=== PATIENT | male | born 1995 | race Caucasian/White ===

== ENCOUNTER 2017-07-03 00:01 | Emergency (ER) | payer BC, MEDICAID ==
[~2017-07-03] VITALS: Ht 175.3 cm; Wt 71.8 kg
[2017-07-03 00:04] VITALS: BP 113/71
[2017-07-03] MEDS ORDERED: SILVER SULF. CRM 1% , 25GM ONE (00:49)
[2017-07-03] MEDS ORDERED: SILVER SULF. CRM 1%, 50GM TP ONE (01:00)
== END 2017-07-03 01:30 | disposition home or self-care (01) ==
LOC: ED 01:10
DX: T22.112A Burn of first degree of left forearm, initial encounter (principal); T31.0 Burns involving less than 10% of body surface; F12.10 Cannabis abuse, uncomplicated; X08.8XXA Exposure to other specified smoke, fire and flames, initial encounter; Y93.89 Activity, other specified; Y99.8 Other external cause status; Y92.89 Other specified places as the place of occurrence of the external cause
CPT/HCPCS: 16020